=== PATIENT | female | born 1940 | race Hispanic/Latino ===

== ENCOUNTER 2017-12-18 12:09 | Emergency (ER) | payer OTHER ==
[~2017-12-18] VITALS: Ht 172.7 cm; Wt 72.6 kg
--- NOTE | 2017-12-18 12:18 | ED GENERAL ADULT ---
History of Present Illness General Chief Complaint: Altered Mental Status Stated Complaint: DEMENTIA ? Source: EMS, police Exam Limitations: confusion Vital Signs & Intake/Output Vital Signs & Intake/Output Vital Signs Date Time Temp Pulse Resp B/P B/P Pulse O2 O2 Flow FiO2 Mean Ox Delivery Rate 12/18 1217 98.1 94 19 152/74 98 Room Air Room Air Triage Nurses Notes Reviewed? yes HPI: Patient was found walking on the street confused. Patient was unable to give her address and did not know where she was. Patient was brought in for evaluation. Patient states that she was minding her own business just kidnapped her and brought her to this hospital and she does not know where she is. Patient has never been here before. Attempting to find her primary doctor for medical history. Past History Medical History Any Pertinent Medical History? see below for history Neurological: UNKNOWN Surgical History Surgical History: UNKNOWN Psychosocial History Tobacco Use: Cognitive Impairment Family History Hx Contributory? No Review of Systems Review of Systems Constitutional: Reports: see HPI. Physical Exam Physical Exam General Appearance: well developed/nourished, alert, awake Head: atraumatic, normal appearance Eyes: Bilateral: PERRL, EOMI. Ears, Nose, Throat: normal pharynx, normal ENT inspection, hearing grossly normal Neck: normal inspection, supple, full range of motion Respiratory: normal breath sounds, chest non-tender, no respiratory distress, lungs clear Cardiovascular: regular rate/rhythm, normal peripheral pulses Gastrointestinal: normal bowel sounds, soft, non-tender, no organomegaly Back: normal inspection, normal range of motion Extremities: normal inspection, normal capillary refill, normal range of motion, no edema Neurologic/Psych: no motor/sensory deficits, awake, normal mood/affect, A&O X1 Core Measures ACS in differential dx? No CVA/TIA Diagnosis: No Sepsis Present: No Sepsis Focused Exam Completed? No Progress Differential Diagnoses I considered the following diagnoses in my evaluation of the patient: [DEMENTIA, ELECTROLYTE ABORMLAITY, UTI] Plan of Care: Orders Procedure Date/time Status URINALYSIS 12/18 1216 Active COMPREHENSIVE METABOLIC PANEL 12/18 1216 Active CBC WITHOUT DIFFERENTIAL 12/18 1216 Active Initial ED EKG: none Comments: Patient's family is at the bedside. Patient has dementia and recently moved [place] from [place]. Family states that the patient is at her baseline and they feel comfortable taking her home. Departure Departure Disposition: HOME OR SELF CARE Condition: Stable Clinical Impression Primary Impression: Dementia Additional Instructions: RETURN FOR ANY CONCERNS Departure Forms: Customer Survey General Discharge Information Critical Care Note Critical Care Note Critical Care Time: non-applicable
[2017-12-18 13:25] VITALS: BP 142/72
== END 2017-12-18 13:25 ==
LOC: ERH 12:09
DX: F03.90 Unspecified dementia, unspecified severity, without behavioral disturbance, psychotic disturbance, mood disturbance, and anxiety (principal); R41.0 Disorientation, unspecified